=== PATIENT | female | born 1980 | race Caucasian/White ===

== ENCOUNTER → 2018-06-13 | Outpatient (CLI) | payer BC ==
--- NOTE | 2018-06-13 18:22 | ECHOF ---
Referral Reason:R00.2 Palpitations MEASUREMENTS -------- HEIGHT: 167.6 cm WEIGHT: 61.2 kg BP: RVIDd: 2.6 cm (< 3.3) IVSd: 0.8 cm (0.6 - 1.1) LVIDd: 4.2 cm (3.9 - 5.3) LVPWd: 0.8 cm (0.6 - 1.1) IVSs: 1.1 cm LVIDs: 2.5 cm LVPWs: 1.2 cm LAESV Index (A-L): 19.96 ml/m Ao Diam: 2.6 cm (2.0 - 3.7) AV Cusp: 1.8 cm (1.5 - 2.6) LA Diam: 2.4 cm (2.7 - 3.8) MV EXCURSION: 17.657 mm (> 18.000) MV EF SLOPE: 149 mm/s (70 - 150) EPSS: 0.3 cm MV E Bernardino: 0.80 m/s MV DecT: 358 ms MV A Bernardino: 0.62 m/s MV E/A Ratio: 1.30 RAP: 10.00 mmHg RVSP: 32.35 mmHg FINDINGS -------- Sinus rhythm. This was a technically good study. The left ventricular size is normal. Left ventricular wall thickness is normal. Overall left vent ricular systolic function is normal with, an EF between 55 - 60 %. The right ventricle is normal in size. Normal LA size by volume 22+/-6 ml/m2. The right atrium is normal in size. The aortic valve is trileaflet, and appears structurally normal. No aortic stenosis or regurgitation. The mitral valve leaflets are mildly thickened. Mild mitral regurgitation is present. Trace tricuspid regurgitation present. Right ventricular systolic pressure is normal at < 35 mmHg. The right ventricular systolic pressure, as measured by Doppler, is 32.35mmHg. Trace/mild (physiologic) pulmonic regurgitation. The aortic root size is normal. The inferior vena cava is dilated with poor inspiratory collapse which is consistent with estimated r ight atrial pressure of 20 mmHg. There is no pericardial effusion. CONCLUSIONS -------- 1. Sinus rhythm. 2. This was a technically good study. 3. The left ventricular size is normal. 4. Left ventricular wall thickness is normal. 5. Overall left ventricular systolic function is normal with, an EF between 55 - 60 %. 6. Normal LA size by volume 22+/-6 ml/m2. 7. The aortic valve is trileaflet, and appears structurally normal. No aortic stenosis or regurgitati on. 8. The mitral valve leaflets are mildly thickened. 9. Mild mitral regurgitation is present. 10. Trace tricuspid regurgitation present. 11. Right ventricular systolic pressure is normal at < 35 mmHg. 12. Trace/mild (physiologic) pulmonic regurgitation. 13. The aortic root size is normal. 14. The inferior vena cava is dilated with poor inspiratory collapse which is consistent with estimat ed right atrial pressure of 20 mmHg. 15. There is no pericardial effusion. PROPERTY SITE MANAGER: Sunil Peres RDCS
== END ==
LOC: RADECHMAIN 16:11
PROVIDERS: ATTEND Family Medicine
DX: I34.0 Nonrheumatic mitral (valve) insufficiency (principal); I37.1 Nonrheumatic pulmonary valve insufficiency; I51.7 Cardiomegaly
CPT/HCPCS: 93306

== ENCOUNTER → 2019-04-30 | Outpatient (CLI) | payer BC ==
[2019-04-30 13:36] LABS: Basophils # (A) 0.1 k/uL (0-0.2); Basophils % (A) 2 %; Eosinophils % (A) 1 %; HCT 41.1 % (34.0-46.0); HGB 13.1 gm/dL (11.4-16.0); Lymphocytes # (A) 0.9 k/uL (1.0-4.8); Lymphocytes % (A) 25 %; MCH 29.6 pg (25.0-35.0); MCV 92.4 fL (80.0-100.0); Mean Platelet Volume 7.7; Monocytes # (A) 0.2 k/uL (0-1.0); Monocytes % (A) 5 %; Neutrophils # (A) 2.5 k/uL (1.3-7.7); Neutrophils % (A) 66 %; Platelet Count 189 k/uL (150-450); RBC 4.45 m/uL (3.80-5.40); RDW 12.1 % (11.5-15.5); WBC 3.8 k/uL (3.8-10.6)
[2019-04-30 14:00] LABS: African American GFR (CKD) >90 (>60 ml/min/1.73 sqM); Anion Gap 7 mmol/L; Blood Urea Nitrogen 12 mg/dL (7-17); Calcium 8.4 mg/dL (8.4-10.2); Carbon Dioxide 28 mmol/L (22-30); Chloride 104 mmol/L (98-107); Glucose 101 mg/dL (74-99); Non-African American GFR(CKD) >90 (>60 ml/min/1.73 sqM); Potassium 3.4 mmol/L (3.5-5.1); Sodium 139 mmol/L (137-145)
== END | disposition home or self-care (01) ==
LOC: LABWHC1 12:57
PROVIDERS: ATTEND Obstetrics & Gynecology
DX: Z01.812 Encounter for preprocedural laboratory examination (principal)
CPT/HCPCS: 36415; 80048; 85025

== ENCOUNTER 2019-05-07 05:53 | Day surgery (SDC) | payer BC ==
[2019-04-30 14:03] VITALS: BMI 22.4
--- NOTE | 2019-05-06 16:47 | P.HPOB ---
History of Present Illness H&P Date: 05/06/19 Chief Complaint: Menorrhagia and prolapse Amada is a 39-year-old female with a history of heavy vaginal bleeding. She is had heavy vaginal bleeding for a number of years, and she did undergo a in NovaSure ablation in 2016. It has essentially failed. She is scheduled for a robotic-assisted left scopic hysterectomy with likely removal of fallopian tubes possible removal of ovaries. Possible open procedure as well. Risks/benefits/alternatives reviewed with the patient in detail and did include but were not limited to bleeding and infection, damage to bladder/bowel/nerves/vessels/ureters. She was concerned initially about the possibility of bladder prolapse and I did offer to send her to a-year-old small products ii assembler but she declined and is scheduled for surgery here. She does have a history of mitral valve thickening and cardiology saw her and cleared her for surgery. All the questions are answered for her at this time and she is stable for surgery at this time. Past Medical History Past Medical History: Chest Pain / Angina, GERD/Reflux Additional Past Medical History / Comment(s): current sinus problemsm, occ palpitations-states caffiene related, anemia, occ.problems with prolapsed bladder History of Any Multi-Drug Resistant Organisms: None Reported Past Surgical History: Uterine Ablation Additional Past Surgical History / Comment(s): sinus surgery, vaginal surgery to repair after childbirth Past Anesthesia/Blood Transfusion Reactions: Motion Sickness Smoking Status: Never smoker - Past Family History Father Family Medical History: No Reported History Mother Family Medical History: No Reported History Medications and Allergies Home Medications Medication Instructions Recorded Confirmed Type L.acidoph,Paracasei, B.lactis 1 each PO DAILY 04/30/19 04/30/19 History [Probiotic] Allergies Allergy/AdvReac Type Severity Reaction Status Date / Time sulfamethoxazole Allergy chest Verified 04/30/19 14:31 [From Bactrim] pain/palpitations trimethoprim [From Bactrim] Allergy chest Verified 04/30/19 14:31 pain/palpitations steroids Allergy chest Uncoded 04/30/19 14:31 pain/palipations Exam Osteopathic Statement: *. No significant issues noted on an osteopathic structural exam other than those noted in the History and Physical/Consult. - OBG Physical Exam Breast: both: normal (no masses) Abdomen: bowel sounds normal, no diffuse tenderness, no bruit present, no guarding noted, no hepatomegaly, no splenomegaly, no mass Vulva: both: normal Vagina: normal moisture, no discharge Cervix: no lesion, no discharge Uterus: normal size, normal contour Adnexa: both: normal Anus/Rectum: normal perianal skin, no rectal mass, no hemorrhoids, heme negative
[~2019-05-07 05:53] MED LIST: HYDROmorphone 0.5 MG/0.5 ML SYRINGE IVP PRN; LIDOCAINE 1% 20 ML VIAL (10MG/ML) FOR IV START INTRADERMA PRN; SCOPOLAMINE 1.5MG/72HR PATCH TRANSDERM ONE
[2019-05-07] MEDS: LACTATED RINGERS 1,000 ML IV SCH ×2 (06:44→17:15)
[2019-05-07] MEDS: ONDANSETRON 4 MG/2 ML VIAL IVP ONE ×2 (06:52→09:21)
[2019-05-07] MEDS ORDERED: MIDAZOLAM 2 MG/2 ML VIAL IVP ONE (07:13)
[2019-05-07] MEDS ORDERED: MORPHINE SULFATE 2 MG/ML SYRINGE IVP PRN (07:23)
[2019-05-07] MEDS ORDERED: NALOXONE 0.4 MG/ML 1 ML VIAL IV PRN (07:23)
[2019-05-07] MEDS ORDERED: NALBUPHINE 10 MG/ML (1 ML AMP) IV PRN (07:23)
[2019-05-07] MEDS ORDERED: KETOROLAC 30 MG/ML 1 ML VIAL ONE (07:32)
[2019-05-07] MEDS ORDERED: diphenhydrAMINE 50 MG/ML 1 ML VIAL ONE (07:32)
[2019-05-07] MEDS ORDERED: MIDAZOLAM 2 MG/2 ML VIAL ONE (07:32)
[2019-05-07] MEDS ORDERED: MORPHINE SULFATE (PF) 0.3 MG/0.3 ML SYR ONE (07:32)
[2019-05-07] MEDS ORDERED: LIDOCAINE 1% INJ 10MG/ML (20 ML MDV) ONE (07:32)
[2019-05-07] MEDS ORDERED: PROPOFOL 10 MG/ML 20 ML VIAL IV ONE (07:32)
[2019-05-07] MEDS ORDERED: fentaNYL (PF) 50 MCG/ML 2 ML AMP ONE (07:32)
[2019-05-07] MEDS ORDERED: GLYCOPYRROLATE 0.2 MG/ML 2 ML VIAL ONE (07:32)
[2019-05-07] MEDS ORDERED: NEOSTIGMINE 1 MG/ML 10 ML VIAL ONE (07:32)
[2019-05-07] MEDS ORDERED: ROCURONIUM BROMIDE 10 MG/ML 10 ML VIAL IV ONE (07:32)
[2019-05-07] MEDS ORDERED: BUPIVACAINE (PF) 0.25% 30 ML VIAL SQ ONE (07:59)
[2019-05-07] MEDS ORDERED: ONDANSETRON 4 MG/2 ML VIAL IVP PRN (09:12)
[2019-05-07] MEDS ORDERED: KETOROLAC 30 MG/ML 1 ML VIAL IVP PRN (09:12)
[2019-05-07] MEDS ORDERED: SIMETHICONE 80 MG CHEWABLE PO PRN (09:12)
[2019-05-07] MEDS ORDERED: HYDROcodone/APAP 7.5-325MG 1 EACH TAB PO PRN (09:14)
--- NOTE | 2019-05-07 09:23 | P.OP ---
Date of Procedure: 05/07/19 Preoperative Diagnosis: Menorrhagia: Field Rosario Postoperative Diagnosis: Same Procedure(s) Performed: Robotic-assisted laparoscopic hysterectomy with bilateral salpingectomy Anesthesia: SERGEY Surgeon: Augie Lynn Bead Picker #1: Trudy Barclay Estimated Blood Loss (ml): 100 IV fluids (ml): 1,000 Urine output (ml): 75 Pathology: other (Uterus, cervix, fallopian tubes) Condition: stable Disposition: floor Operative Findings: Tissue pathology pending Description of Procedure: Amaad was taken to the operating suite where a general anesthetic was found be adequate. She was prepped and draped in the normal sterile fashion and placed in the dorsal lithotomy position. Initially a weighted speculum was inserted into the vagina and the anterior lip of the cervix identified and grasped with single-tooth tenaculum. Uterus was then sounded to 10 cm and then cervix was dilated. Stay sutures were placed at 3 and 9 and with a cup size of 3 cm the Jackelin manipulator was inserted without difficulty. Sotomayor catheter was then placed and other incidents removed. Close were changed and attention was turned to the abdominal portion of the procedure. 2 mL of quarter percent Marcaine was then injected periumbilically and through this injected anesthetic a 5 mm skin incision was made. Through this incision under direct visualization with an optical trocar and sleeve the camera was inserted. Once peritoneal placement was assured gas allowed to fully insufflate the abdomen and patient was then placed in steep Trendelenburg position. Once this was completed 2 lateral inc isions were made 10 cm from the umbilicus on the right and left side an 8 mm da Garret ports were placed. Fourth port and sleeve was inserted under direct visualization between the left lateral and medial port and the camera port was exchanged for robotic port. At this point robot was brought in and docked and with a Metzenbaum in the one arm and [place] grasper in the 2 arm I did break scrub and go to the console. Observations pelvis were noted. No gross pathology was noted. Therefore uterus is elevated and tipped to the right-hand side and the left fallopian tube was excised by incising through the nasal salpinx cauterized and the tissue then cutting it to approximately the area of the utero-ovarian ligament this utero-ovarian ligament was then cauterized transected and cauterization and transection through the broad ligament to the round ligament was then done. Round ligament was then cauterized and transected and anterior posterior leafs the broad ligament were developed. Left side of the uterus is vasculature was then cauterized. Once this was completed bladder flap identified and entered with the Metzenbaum scissor. Once this was completed [place] was used to undermine the tissue and then incised across face the uterus to create the bladder flap. Bladder was then bluntly dissected out of the operative field. Attention was then turned the right side of the uterus with left-sided completed. In a similar fashion right side was developed. With good hemostasis noted and bladder completely out of the operative field the anterior colpotomy was made following insufflation of the balloon on the Jackelin manipulator. Following the cervix in a counterclockwise fashion cheating head when necessary to maintain hemostasis the cup was followed around 3 and 60 once this was completed the uterus was brought into the vagina to maintain pneumoperitoneum. One area of bleeding was noted the left side of the vaginal cuff and was cauterized. Once this was completed incidents were exchanged for a make suture cut and a cardia grasper and the vaginal cuff was closed with to OB lock suture. As the corner suture was going in it did cut through a vessel and this vessel despite finishing the closure of the lock was still bleeding slightly therefore 0 Vicryl suture was used in an interrupted fashion to make to obtain excellent hemostasis in the corner region of the incision. Once this was completed pelvis was thoroughly irrigated and no active bleeding is noted. Instruments were then removed and gas was slowly allowed to this pelvic the abdomen so we could verify that even without pressure there was no active bleeding. Once this was verified all incidents were fully removed and gas allowed to fully expel from the abdomen 5 deep breaths were provided. Once this process was completed I did do a cystoscopy with excellent flow noted from both ureteral jets and Dr. Barclay close the incision subcuticular. The remaining 8 mL of quarter percent Marcaine was injected injected around these incisions. Sponge, lap, needle counts were all correct 2. Patient was then taken to the recovery room in stable and satisfactory condition.
[2019-05-07] MEDS ORDERED: METOCLOPRAMIDE 5 MG/ML 2 ML VIAL IVP ONE (09:45)
[2019-05-07] MEDS: diphenhydrAMINE 50 MG/ML 1 ML VIAL IVP PRN ×2 (13:25→22:18)
[2019-05-07] MEDS: SENNOSIDES-DOCUSATE SODIUM 1 EACH TAB PO SCH (22:18)
[2019-05-07 22:38] VITALS: RESP 16
[2019-05-08 05:41] VITALS: TEMP 98.3
--- NOTE | 2019-05-08 07:52 | P.DS ---
Providers Expected date of discharge: 05/08/19 Attending physician: Augie Lynn Primary care physician: [facility] Course: Amada is doing very well postop day 1. She is involuting, voiding and tolerating her diet. She passed flatus. Vital signs are stable and afebrile. Heart regular, lungs clear, extremities without pain. Abdomen soft incisions are intact. She relates that she has no pain at all today. We'll plan discharged home later this morning. Discharge instructions were thoroughly reviewed and all questions were answered for her prior to her discharge. Prescription for [place] and Motrin were sent to the pharmacy. All other ques tions are answered for her at this time and she is stable for discharge this time. She will follow up with me in 1 week. Patient Condition at Discharge: Good Plan - Discharge Summary Discharge Rx Participant: Yes New Discharge Prescriptions: New Ibuprofen [Motrin] 600 mg PO Q6HR PRN #30 tab PRN Reason: Pain HYDROcodone/APAP 5-325MG [[place] 5-325] 1 tab PO Q4HR PRN #30 tab PRN Reason: Pain No Action L.acidoph,Paracasei, B.lactis [Probiotic] 1 each PO DAILY Discharge Medication List L.acidoph,Paracasei, B.lactis [Probiotic] 1 each PO DAILY 04/30/19 [History] HYDROcodone/APAP 5-325MG [[place] 5-325] 1 tab PO Q4HR PRN #30 tab 05/08/19 [Rx] Ibuprofen [Motrin] 600 mg PO Q6HR PRN #30 tab 05/08/19 [Rx] Follow up Appointment(s)/Referral(s): Augie Lynn DO [Doctor of Osteopathic Medicine] - 1 Week Activity/Diet/Wound Care/Special Instructions: No heavy lifting, limit stairs and driving, and complete pelvic rest. If any high temperatures, heavy bleeding, or severe pain call my office Discharge Disposition: HOME SELF-CARE
[2019-05-08 08:16] LABS: Basophils % (A) 1 %; Eosinophils # (A) 0.1 k/uL (0-0.7); Eosinophils % (A) 2 %; HCT 38.4 % (34.0-46.0); HGB 12.7 gm/dL (11.4-16.0); Lymphocytes # (A) 2.2 k/uL (1.0-4.8); Lymphocytes % (A) 33 %; MCH 30.2 pg (25.0-35.0); MCHC 33.1 g/dL (31.0-37.0); MCV 91.5 fL (80.0-100.0); Mean Platelet Volume 7.5; Monocytes # (A) 0.3 k/uL (0-1.0); Monocytes % (A) 5 %; Neutrophils # (A) 3.9 k/uL (1.3-7.7); Neutrophils % (A) 58 %; Platelet Count 274 k/uL (150-450); RDW 12.1 % (11.5-15.5); WBC 6.7 k/uL (3.8-10.6)
[2019-05-08 09:31] VITALS: BP 116/82; PULSE 74
[2019-05-08] MEDS: SENNOSIDES-DOCUSATE SODIUM 1 EACH TAB PO SCH (09:32)
== END 2019-05-08 10:15 | disposition home or self-care (01) ==
LOC: OR 05:53 → 4FBP 09:13 → OR 05-08 10:15
PROVIDERS: ATTEND Obstetrics & Gynecology
DX: N80.0 Endometriosis of uterus (principal); N81.10 Cystocele, unspecified; N72 Inflammatory disease of cervix uteri; N92.0 Excessive and frequent menstruation with regular cycle; K21.9 Gastro-esophageal reflux disease without esophagitis; D64.9 Anemia, unspecified; Z88.2 Allergy status to sulfonamides; Z88.8 Allergy status to other drugs, medicaments and biological substances; Z98.890 Other specified postprocedural states
CPT/HCPCS: 81025; 85025; 88307; 58571; J2250; J1200; J2710; J2765; J0690; J2405; J2001; J2274; J3010; J1885 ×2; J2704; 86850; 86900; 86901; 88305

== ENCOUNTER → 2020-07-12 | Outpatient (CLI) | payer BC ==
--- NOTE | 2020-07-14 13:35 | MM ---
Reason for exam: screening (asymptomatic). Last mammogram was performed 3 years ago. History: Patient had first child at age 31. Physical Findings: A clinical breast exam by your physician is recommended on an annual basis and results should be correlated with mammographic findings. MG 3D Screening Mammo W/Cad Bilateral CC and MLO view(s) were taken. Prior study comparison: July 12, 2017, bilateral MG 3d screening mammo w/cad. The breast tissue is heterogeneously dense. This may lower the sensitivity of mammography. No significant changes when compared with prior studies. ASSESSMENT: Benign, BI-RAD 2 RECOMMENDATION: Routine screening mammogram of both breasts in 1 year.
== END | disposition home or self-care (01) ==
LOC: RADMAMWWP 12:47
PROVIDERS: ATTEND Obstetrics & Gynecology Obstetrics
DX: Z12.31 Encounter for screening mammogram for malignant neoplasm of breast (principal)
CPT/HCPCS: 77063; 77067

== ENCOUNTER → 2021-08-29 | Outpatient (CLI) | payer BC ==
--- NOTE | 2021-08-30 08:45 | MM ---
Reason for Exam: Screening (asymptomatic). Last mammogram was performed 1 year(s) and 1 month(s) ago. Patient History: Menarche at age 12. First Full-Term at age 31. Late child-bearing (after 30). Hysterectomy at age 39. Currently using Estrogen, beginning at age 40 for 1 year. Risk Values: Niya 5 year model risk: 0.8%. NCI Lifetime model risk: 13.5%. Film Views: Bilateral CC views were taken. Bilateral MLO views were taken. Prior Study Comparison: 07/12/2017 Bilateral Screening Mammogram, [facility]. 07/12/2020 Bilateral Screening Mammogram, [facility]. Tissue Density: The breast tissue is heterogeneously dense. This may lower the sensitivity of mammography. Findings: Analyzed By CAD. There is no suspicious group of microcalcifications or new suspicious mass in either breast. Overall Assessment: Benign, BI-RAD 2 Management: Screening Mammogram of both breasts in 1 year. A clinical breast exam by your physician is recommended on an annual basis and results should be correlated with mammographic findings. Electronically signed and approved by: Joe Barnett M.D. Radiologis
== END | disposition home or self-care (01) ==
LOC: RADMAMWWP 08:34
PROVIDERS: ATTEND Obstetrics & Gynecology Obstetrics
DX: Z12.31 Encounter for screening mammogram for malignant neoplasm of breast (principal)
CPT/HCPCS: 77063; 77067

== ENCOUNTER → 2022-06-15 | Outpatient (CLI) | payer BC ==
--- NOTE | 2022-06-15 08:25 | XR ---
EXAMINATION TYPE: XR knee complete RT DATE OF EXAM: 06/15/2022 COMPARISON: NONE HISTORY: Pain TECHNIQUE: Three views are submitted. FINDINGS: Joint spaces are preserved. Osseous structures are intact. No acute fracture seen. IMPRESSION: 1. No acute fracture or dislocation. If symptoms are persistent consider MRI to assess for internal derangement of the knee.
== END | disposition home or self-care (01) ==
LOC: RADXRMAIN 08:07
PROVIDERS: ATTEND Family Medicine
DX: M25.561 Pain in right knee (principal)

== ENCOUNTER → 2022-06-26 | Outpatient (CLI) | payer BC ==
--- NOTE | 2022-06-27 08:43 | MR ---
EXAMINATION TYPE: MR knee RT wo con DATE OF EXAM: 06/26/2022 COMPARISON: Right knee x-ray June 15, 2022 HISTORY: Right inner knee pain and swelling for 1 year. TECHNIQUE: Multiplanar, multisequence imaging of the right knee is performed without IV contrast. FINDINGS: MEDIAL MENISCUS: There is faint Oblique increased signal posterior horn extending to articular surfac e sagittal image 8. LATERAL MENISCUS: Anterior and posterior horns are intact without tear. CRUCIATE LIGAMENTS: The anterior and posterior cruciate ligaments are intact and unremarkable. COLLATERAL LIGAMENTS: The medial collateral ligament and lateral collateral ligament complex are inta ct and unremarkable. EXTENSOR MECHANISM: Visualized quadriceps and patellar tendons are intact. EFFUSION: No significant suprapatellar joint effusion. POPLITEAL CYST: No popliteal/ramirez cyst. TRICOMPARTMENT SPACES: Tricompartment joint spaces are preserved. No significant spurring is seen. CARTILAGE: The tricompartment articular cartilage is maintained. BONE MARROW SIGNAL: No focal abnormal marrow signal is appreciated. OTHER: No additional significant abnormality is appreciated. IMPRESSION: 1. Subtle at least intrasubstance but suspected full thickness tear posterior horn medial meniscus ot herwise unremarkable study.
== END | disposition home or self-care (01) ==
LOC: RADMRIMAIN 15:48
PROVIDERS: ATTEND Family Medicine
DX: M23.221 Derangement of posterior horn of medial meniscus due to old tear or injury, right knee (principal)

== ENCOUNTER → 2022-12-11 | Outpatient (CLI) | payer BC ==
--- NOTE | 2022-12-12 09:23 | MM ---
Reason for Exam: Screening (asymptomatic). Last mammogram was performed 1 year(s) and 4 month(s) ago. Patient History: Menarche at age 12. First Full-Term at age 31. Late child-bearing (after 30). Hysterectomy at age 39. Postmenopausal. Currently using Estrogen, beginning at age 40 for 1 year. Maternal cousin had breast cancer, age 50. Risk Values: Niya 5 year model risk: 0.9%. NCI Lifetime model risk: 13.4%. Prior Study Comparison: 07/12/2017 Bilateral Screening Mammogram, [facility]. 07/12/2020 Bilateral Screening Mammogram, [facility]. 08/29/2021 Bilateral MG 3D screening mammo w/cad, [facility]. Tissue Density: The breast tissue is heterogeneously dense. This may lower the sensitivity of mammography. Findings: Analyzed By CAD. There is no suspicious group of microcalcifications or new suspicious mass. Overall Assessment: Negative, BI-RAD 1 Management: Screening Mammogram of both breasts in [address] [facility] will attempt to contact patient to return for supplemental views and ultrasound if indicated. Patient should continue monthly self-breast exams. A clinical breast exam by your physician is recommended on an annual basis. This exam should not preclude additional follow-up of suspicious palpable abnormalities. Note on Niya scores and lifetime risk: 1. A Niya score greater than 3% is considered moderate risk. If this is the case, consider specialist referral to assess eligibility for a risk reducing agent. 2. If overall lifetime risk for the development of breast cancer is 20% or higher, the patient may qualify for future screening with alternating mammogram and breast MRI. Electronically signed and approved by: Trent Reynolds DO
== END | disposition home or self-care (01) ==
LOC: RADMAMWWP 08:22
PROVIDERS: ATTEND Family Medicine
DX: Z12.31 Encounter for screening mammogram for malignant neoplasm of breast (principal); Z78.0 Asymptomatic menopausal state; Z80.3 Family history of malignant neoplasm of breast
CPT/HCPCS: 77063; 77067